=== PATIENT | female | born 1945 | race Caucasian/White ===

== ENCOUNTER 2017-10-02 00:40 | Outpatient (CLI) | payer MEDICARE, MEDICAID ==
[~2017-10-02 00:40] MED LIST: HUM10VIA SQ; LEVO25TA2 PO; LISI-604 PO
== END 2017-10-02 23:59 | disposition home or self-care (01) ==
LOC: EEVIPCON → DIABETIC 00:40
PROVIDERS: ATTEND Specialist
DX: E11.9 Type 2 diabetes mellitus without complications (principal)
CPT/HCPCS: G0108

== ENCOUNTER 2017-11-13 05:00 | Outpatient (CLI) | payer MEDICARE, MEDICAID | END 2017-11-13 23:59 | disposition home or self-care (01) | LOC: DIABETIC 05:00 | PROVIDERS: ATTEND Specialist | DX: E11.9 Type 2 diabetes mellitus without complications (principal) | CPT/HCPCS: G0108 ==

== ENCOUNTER 2022-08-19 07:19 | Emergency (ER) | payer MEDICARE, MEDICAID ==
[~2022-08-19] VITALS: Ht 162.6 cm; Wt 59.1 kg
[~2022-08-19 07:19] MED LIST changes: -LISI-604 PO; +LISI5TAB22 PO
--- NOTE | 2022-08-19 10:18 | NUR ---
Back From CT Scan.
[2022-08-19] MEDS ORDERED: TETanus/Pertussis (Acell)/Diphther VAC/PF (Tdap-Adult) 0.5ml syringe IMVAC ONE (11:40)
[2022-08-19 12:12] VITALS: BP 136/74
== END 2022-08-19 12:15 | disposition home or self-care (01) ==
LOC: ER 07:20
DX: S82.091A Other fracture of right patella, initial encounter for closed fracture (principal); I10 Essential (primary) hypertension; E11.9 Type 2 diabetes mellitus without complications; E03.9 Hypothyroidism, unspecified; F03.90 Unspecified dementia, unspecified severity, without behavioral disturbance, psychotic disturbance, mood disturbance, and anxiety; Z88.1 Allergy status to other antibiotic agents; W18.39XA Other fall on same level, initial encounter; Y93.89 Activity, other specified; Y92.89 Other specified places as the place of occurrence of the external cause; Y99.8 Other external cause status
CPT/HCPCS: 70450; 73564; 73700; 82948; 90471; 90715; 99285

== ENCOUNTER 2023-09-20 11:03 | Emergency (ER) | payer MEDICARE, MEDICAID ==
[~2023-09-20] VITALS: Ht 162.6 cm; Wt 54.5 kg
[2023-09-20 11:09] VITALS: BP 122/70; PULSE 103; TEMP 98; O2SAT 97
[2023-09-20 13:45] VITALS: RESP 16
[2023-09-20] MEDS: HYDROcodone/acetaminophen 5mg/325mg tablet PO ONE (14:30)
== END 2023-09-20 15:00 | disposition home or self-care (01) ==
LOC: ER 11:03
DX: S80.11XA Contusion of right lower leg, initial encounter (principal); I10 Essential (primary) hypertension; E11.9 Type 2 diabetes mellitus without complications; Z88.1 Allergy status to other antibiotic agents; Z79.84 Long term (current) use of oral hypoglycemic drugs; Z79.899 Other long term (current) drug therapy; W19.XXXA Unspecified fall, initial encounter; Y93.89 Activity, other specified; Y92.89 Other specified places as the place of occurrence of the external cause; Y99.8 Other external cause status
CPT/HCPCS: 70450; 73502; 73590; 82948; 99284

== ENCOUNTER 2024-02-09 14:35 | Emergency (ER) | payer MEDICARE, MEDICAID ==
[~2024-02-09] VITALS: Ht 160 cm; Wt 47.7 kg
[2024-02-09 15:25] LABS: BASOPHILS # (AUTO) 0.1 X10'3 (0-0.2); BASOPHILS % (AUTO) 0.7 % (0-1); EOSINOPHILS # (AUTO) 0.1 X10'3 (0-0.9); EOSINOPHILS % (AUTO) 1.3 % (0-6); HEMATOCRIT 33.3 % (35.0-45.0); LYMPHOCYTES # (AUTO) 1.1 X10'3 (1.1-4.8); LYMPHOCYTES % (AUTO) 14.3 % (21-51); MEAN CORPUSCULAR HEMOGLOBIN 32.3 PG (27.0-31.0); MEAN CORPUSCULAR HGB CONC 33.1 g/dL (33.0-36.5); MEAN CORPUSCULAR VOLUME 97.6 FL (78-98); MEAN PLATELET VOLUME 8.9 FL (7.4-10.4); MONOCYTES # (AUTO) 0.7 X10'3 (0-0.9); MONOCYTES % (AUTO) 8.7 % (2-12); NEUTROPHILS # (AUTO) 5.8 X10'3 (1.8-7.7); PLATELET COUNT 179 X10'3 (140-440); RED BLOOD COUNT 3.42 X10'6 (4.20-5.60); RED CELL DISTRIBUTION WIDTH 12.9 % (11.5-14.5); WHITE BLOOD COUNT 7.7 X10'3 (4.5-11.0)
[2024-02-09 15:35] LABS: ALBUMIN 3.1 G/DL (3.4-5.0); ANION GAP 9 (8-16); BLOOD UREA NITROGEN 24 MG/DL (7-18); BUN/CREATININE RATIO 23.1 (10.0-20.0); CALCIUM 8.7 MG/DL (8.5-10.1); CHLORIDE 105 MMOL/L (99-107); CREATININE 1.04 MG/DL (0.40-0.90); GLUCOSE 251 MG/DL (70-104); POTASSIUM 3.9 MMOL/L (3.5-5.1); SODIUM 140 MMOL/L (135-145); TOTAL CARBON DIOXIDE 25.9 MMOL/L (24-32); eCRCL 34 ML/MIN; eGFR 51 ML/MIN
[2024-02-09] MEDS: normal saline 1000ML IV soln IVB ONE (17:22)
[2024-02-09 18:25] VITALS: BP 124/68; PULSE 90; RESP 16; TEMP 98.3; O2SAT 93
== END 2024-02-09 18:28 | disposition home or self-care (01) ==
LOC: ER 14:36
DX: R42 Dizziness and giddiness (principal); E86.0 Dehydration; I10 Essential (primary) hypertension; E11.9 Type 2 diabetes mellitus without complications; Z88.1 Allergy status to other antibiotic agents; Z79.4 Long term (current) use of insulin; Z79.2 Long term (current) use of antibiotics
CPT/HCPCS: 36415; 80048; 85025; 93005; 99285; J7030

== ENCOUNTER 2024-11-28 23:31 | Emergency (ER) | payer MEDICARE, MEDICAID ==
[~2024-11-28] VITALS: Ht 160 cm; Wt 49.4 kg
[2024-11-29 00:26] VITALS: TEMP 97.6
[2024-11-29 01:11] LABS: BASOPHILS % (AUTO) 0.6 % (0-1); EOSINOPHILS # (AUTO) 0.2 X10'3 (0-0.9); EOSINOPHILS % (AUTO) 2.1 % (0-6); HEMOGLOBIN 11.7 g/dl (12.0-16.0); LYMPHOCYTES # (AUTO) 1.9 X10'3 (1.1-4.8); LYMPHOCYTES % (AUTO) 22.5 % (21-51); MEAN CORPUSCULAR HEMOGLOBIN 32.3 PG (27.0-31.0); MEAN CORPUSCULAR HGB CONC 34.4 g/dL (33.0-36.5); MEAN CORPUSCULAR VOLUME 93.9 FL (78-98); MEAN PLATELET VOLUME 8.3 FL (7.4-10.4); MONOCYTES # (AUTO) 0.5 X10'3 (0-0.9); MONOCYTES % (AUTO) 6.5 % (2-12); NEUTROPHILS # (AUTO) 5.6 X10'3 (1.8-7.7); NEUTROPHILS % (AUTO) 68.3 % (42-75); PLATELET COUNT 240 X10'3 (140-440); RED BLOOD COUNT 3.62 X10'6 (4.20-5.60); RED CELL DISTRIBUTION WIDTH 13.2 % (11.5-14.5); WHITE BLOOD COUNT 8.3 X10'3 (4.5-11.0)
--- NOTE | 2024-11-29 01:21 | Physician Documentation ---
History of Present Illness ~ General Chief Complaint: Multiple Medical Complaints Stated Complaint: LOW BLOOD SUGAR Time Seen by MD: 01:21 Primary Medical Doctor: [facility] Mode of Arrival: POV, Ambulatory History of Present Illness Initial Comments 79-year-old female, history of dementia, diabetes on insulin, who presents with episodes of low blood glucose. Unable to obtain any history from the patient due to her dementia. She is pleasant and smiling but does not really answer most questions. Her daughter/crop research scientist, tells me that she brought her in because she had an episode of low blood sugar where her glucose was in the 40s on her monitor. She says over the past 3 days she has had episodes similar to this. She gave her glucose and glucagon. She smelled her breath, and it smelled fruity. She called the nurse hotline, and was told that she might have DKA because of the fruity breath and so she was told to come to the emergency department. Here in the ED, the patient's blood glucose has improved. She is essentially asymptomatic. Medication Reconciliation Allergies: Coded Allergies: amoxicillin (Verified Adverse Reaction, Unknown, GI, 06/21/14) Scheduled Hum Insulin NPH/Reg Insulin Hm (Humulin 70-30 Vial), 10 UNITS SQ AC, (Reported) Lisinopril (Lisinopril), 1 TABLET PO DAILY, (Reported) levothyroxine sodium* (Synthroid*), 1 TABLET PO DAILY, (Reported) Past Medical History Past Medical History: Hypertension, Hemorrhoids, Diabetes, Thyroid (unspecified) Past Surgical History: other Other Past Surgical History: hemorrhoid surgery Alcohol Use: None Drug Use: none Review of Systems Unable to obtain complete ROS: dementia Physical Exam Physical Exam Vital Signs: Temperature: 97.6, Source: Oral, Heart Rate: 89, Respiratory Rate: 15, BP: 132/87, Pulse Oximetry: 100, Weight: 49.400 Oxygen Flow Rate: 0 Physical Exam General: This is a thin smiling elderly woman sitting quietly in bed, daughter at bedside HEENT: Atraumatic, oropharynx appears dry Heart: Regular rate and rhythm, normal-appearing peripheral perfusion Lungs: normal work of breathing, normal oxygen saturation on room air Extremities: Warm and well-perfused. Chronic appearing wound to the left posterior lower leg. Neuro: Alert, does not answer most questions. Psychiatric: Calm and smiling Progress Results/Orders Results/Orders Completed Orders - PHOEBE BRADY MD Cbc/Diff (11/28/24 23:50) CMP (11/28/24 23:50) Vital Signs 11/28/24 11/29/24 11/29/24 11/29/24 23:40 00:17 00:22 00:26 Temp 97.6 97.6 Pulse 84 89 Resp 16 16 15 B/P (MAP) 117/71 132/87 (102) Pulse Ox 96 100 O2 Flow Rate 0 0 11/29/24 02:06 Pulse 82 Resp 16 B/P (MAP) 117/71 Pulse Ox 96 Laboratory Tests Test 11/28/24 23:39 11/29/24 00:33 11/29/24 00:56 Glucometer 134 H 97 White Blood Count 8.3 Red Blood Count 3.62 L Hemoglobin 11.7 L Hematocrit 34.0 L Mean Corpuscular Volume 93.9 Mean Corpuscular Hemoglobin 32.3 H Mean Corpuscular Hemoglobin Concent 34.4 Red Cell Distribution Width 13.2 Platelet Count 240 Mean Platelet Volume 8.3 Neutrophils (%) (Auto) 68.3 Lymphocytes (%) (Auto) 22.5 Monocytes (%) (Auto) 6.5 Eosinophils (%) (Auto) 2.1 Basophils (%) (Auto) 0.6 Neutrophils # (Auto) 5.6 Lymphocytes # (Auto) 1.9 Monocytes # (Auto) 0.5 Eosinophils # (Auto) 0.2 Basophils # (Auto) 0.0 CBC Comment Sodium Level 137 Potassium Level 4.2 Chloride Level 102 Carbon Dioxide Level 27.7 Anion Gap 7 L Blood Urea Nitrogen 22 H Creatinine 0.77 Estimated GFR/1.73 m2 73 BUN/Creatinine Ratio 28.6 H Glucose Level 85 Calcium Level 8.8 Total Bilirubin 0.9 Aspartate Amino Transf (AST/SGOT) 12 Alanine Aminotransferase (ALT/SGPT) 13 Alkaline Phosphatase 138 H Total Protein 7.5 Albumin 3.7 Globulin 3.8 Albumin/Globulin Ratio 1.0 L Chemistry Comments Medical Decision Making Assessment The patient presents with episodes of hypoglycemia. Per her history and exam, I suspect that she is not eating enough to maintain her glucose levels in the setting of insulin use. She has no evidence of dangerous infection. She is not currently hypoglycemic. Her laboratory testing shows no acute abnormality including with her kidney function and electrolytes. Her daughter was reassured that she does not have DKA. At this time I feel like she is safe for discharge home. Her daughter will decrease her insulin dosing and talk to her primary doctor later today to determine ongoing diabetes management. Departure Time of Disposition: 01:49 Disposition: 01 HOME / SELF CARE / HOMELESS Impression: Primary Impression: Hypoglycemia Condition: Improved Referrals: NO PRIMARY CARE PROVIDER (PCP) Education Educated: Patient, Family Educated regarding: diagnosis, treatment Signature Scribe Signature: misa Attestation: PHOEBE Rome MD November 29, 2024 01:21
[2024-11-29 01:27] LABS: ALANINE AMINOTRANSFERASE 13 U/L (12-78); ALBUMIN 3.7 G/DL (3.4-5.0); ALKALINE PHOSPHATASE 138 IU/L (46-116); ANION GAP 7 (8-16); ASPARTATE AMINO TRANSFERASE 12 U/L (10-37); BILIRUBIN,TOTAL 0.9 MG/DL (0.1-1.0); BLOOD UREA NITROGEN 22 MG/DL (7-18); BUN/CREATININE RATIO 28.6 (10.0-20.0); CALCIUM 8.8 MG/DL (8.5-10.1); CHLORIDE 102 MMOL/L (99-107); CREATININE 0.77 MG/DL (0.40-0.90); GLUCOSE 85 MG/DL (70-104); POTASSIUM 4.2 MMOL/L (3.5-5.1); SODIUM 137 MMOL/L (135-145); TOTAL CARBON DIOXIDE 27.7 MMOL/L (24-32); TOTAL PROTEIN 7.5 G/DL (6.4-8.2); eCRCL 48 ML/MIN; eGFR 73 ML/MIN
[2024-11-29 02:06] VITALS: BP 117/71; PULSE 82; RESP 16; O2SAT 96
== END 2024-11-29 02:12 | disposition home or self-care (01) ==
LOC: ER 23:31
DX: E11.649 Type 2 diabetes mellitus with hypoglycemia without coma (principal); F03.90 Unspecified dementia, unspecified severity, without behavioral disturbance, psychotic disturbance, mood disturbance, and anxiety; I10 Essential (primary) hypertension; Z88.0 Allergy status to penicillin
CPT/HCPCS: 36415; 80053; 82948; 85025; 99284

== ENCOUNTER 2025-06-15 22:47 | Emergency (ER) | payer MEDICARE, MEDICAID ==
[~2025-06-15] VITALS: Ht 160 cm; Wt 47.0 kg
[2025-06-15 23:00] VITALS: TEMP 97.7
--- NOTE | 2025-06-15 23:06 | Physician Documentation ---
History of Present Illness ~ Chief Complaint: Syncope Stated Complaint: STEMI Time Seen by MD: 22:59 Primary Medical Doctor: [facility] HPI 80-year-old female, presenting with a head injury Per EMS, the patient had a syncopal episode at home, hit the back of her head. Her daughter found her on the ground. EKG was concerning for possible STEMI. No medications given because of the patient's dementia and challenging behavioral issues Here in the ED, the patient does not cooperate or answer questions. The patient's daughter arrives. She states that the patient did have a fall at home. When she found her on the ground, she was pale and sweaty. She states that the patient has had orthostatic hypotension. She complains of dizziness frequently. She has not complained of any chest pain. Medication Reconciliation Allergies: Coded Allergies: amoxicillin (Verified Adverse Reaction, Unknown, GI, 06/21/14) Scheduled Hum Insulin NPH/Reg Insulin Hm (Humulin 70-30 Vial), 10 UNITS SQ AC, (Reported) Lisinopril (Lisinopril), 1 TABLET PO DAILY, (Reported) levothyroxine sodium* (Synthroid*), 1 TABLET PO DAILY, (Reported) Past Medical History Past Medical History: Hypertension, Hemorrhoids, Diabetes, Thyroid (unspecified) Past Surgical History: other Other Past Surgical History: hemorrhoid surgery Alcohol Use: None Drug Use: none Review of Systems Unable to obtain complete ROS: dementia Physical Exam Vital Signs: Temperature: 97.7, Source: Oral, Heart Rate: 96, Respiratory Rate: 15, BP: 169/89, Pulse Oximetry: 99, Weight: 47.000 Oxygen Flow Rate: 0 Physical Exam General: This is a thin elderly woman, arrives by EMS HEENT: Hematoma to the right posterior scalp, no bleeding or laceration, oropharynx is dry Neck: No reaction to palpation of the midline C-spine Heart: Regular rate and rhythm, normal-appearing peripheral perfusion Lungs: Clear breath sounds bilateral, normal work of breathing, normal oxygen saturation on room air Abdomen: Soft, nondistended, no reaction to palpation of the abdomen Extremities: Warm and well-perfused, no obvious traumatic findings Neuro: Alert, the patient does not answer orientation questions, appears i ntermittently agitated Progress Results/Orders Results/Orders Orders - PHOEBE BRADY MD Ct Head (06/15/25 23:10) Chest,Single View (06/15/25 23:00) Urinalysis, Cult If Indicated (06/15/25 23:01) Straight Cath For Urine Sample (06/15/25 23:01) Ct Cervical Spine (06/15/25 23:10) Completed Orders - PHOEBE BRADY MD Ct Head (06/15/25 23:10) Hs Troponin I W Calculations (06/15/25 23:00) Cbc/Diff (06/15/25 23:00) CMP (06/15/25 23:00) PBNP (06/15/25 23:00) Chest,Single View (06/15/25 23:00) Ct Cervical Spine (06/15/25 23:10) Ondansetron Inj. (Zofran 4mg/2ml Vial) (06/15/25 23:35) Dextrose 50%-Water (Dextrose 50%-Water S (06/15/25 23:45) Medications Received in ER Medications (Trade) Dose Ordered Sig/Marito Route PRN Reason Start Time Stop Time Status Last Admin Dose Admin (Zofran 4mg/2ml vial) 4 mg ONCE ONCE IV 06/15/25 23:35 06/15/25 23:36 DC 06/15/25 23:36 4 MG (dextrose 50%-water syringe) 25 ml ONCE ONCE IV 06/15/25 23:45 06/15/25 23:46 DC 06/15/25 23:46 25 ML Vital Signs 06/15/25 06/15/25 06/15/25 06/16/25 22:53 23:00 23:45 00:00 Temp 97.7 97.7 Pulse 97 96 104 109 Resp 16 15 17 17 B/P (MAP) 159/94 169/89 (115) 166/84 (111) 154/81 (105) Pulse Ox 98 99 99 96 O2 Flow Rate 0 0 0 0 06/16/25 06/16/25 06/16/25 00:15 00:30 00:45 Pulse 109 111 110 Resp 17 18 18 B/P (MAP) 149/82 (104) 150/88 (108) 156/92 (113) Pulse Ox 97 99 97 O2 Flow Rate 0 0 0 Laboratory Tests Test 06/15/25 23:00 White Blood Count 8.3 Red Blood Count 3.59 L Hemoglobin 11.5 L Hematocrit 34.4 L Mean Corpuscular Volume 96.0 Mean Corpuscular Hemoglobin 32.1 H Mean Corpuscular Hemoglobin Concent 33.5 Red Cell Distribution Width 13.3 Platelet Count 227 Mean Platelet Volume 8.3 Neutrophils (%) (Auto) 48.3 Lymphocytes (%) (Auto) 42.8 Monocytes (%) (Auto) 6.5 Eosinophils (%) (Auto) 1.8 Basophils (%) (Auto) 0.6 Neutrophils # (Auto) 4.0 Lymphocytes # (Auto) 3.6 Monocytes # (Auto) 0.5 Eosinophils # (Auto) 0.2 Basophils # (Auto) 0.0 CBC Comment Sodium Level 144 Potassium Level 3.6 Chloride Level 110 H Carbon Dioxide Level 27.5 Anion Gap 7 L Blood Urea Nitrogen 21 H Creatinine 0.70 Estimated GFR/1.73 m2 81 BUN/Creatinine Ratio 30.0 H Glucose Level 72 Calcium Level 9.0 Total Bilirubin 0.5 Aspartate Amino Transf (AST/SGOT) 30 Alanine Aminotransferase (ALT/SGPT) 21 Alkaline Phosphatase 63 Troponin I High Sensitivity 315 *H Pro-B-Type Natriuretic Peptide 449 Total Protein 7.0 Albumin 3.6 Globulin 3.4 Albumin/Globulin Ratio 1.1 Chemistry Comments EKG/XRAY/CT/US/VASC/MRI EKG : Additional Comment I personally interpreted the EKG and this shows: Sinus rhythm, left bundle branch block, rate 97, QTC 447, does not appear consistent with a STEMI CT : Impression I personally interpreted the CT scan, and this shows a subdural hematoma and subarachnoid hemorrhage Consults/PCP Consults/PCP : Additional Comment CONSULT: Spoke to Dr. Arboleda, ER physician at [facility], accepts for transfer Medical Decision Making Additional information obtaine: family Findings Most history obtained from the daughter Differential Dx:Considerations: Include: CVA, dehydration, dysrhythmia, electrolyte disorder, myocardial infarction, pulmonary embolus, vasovagal Additional Information The patient presents with a fall and head injury. EMS was concerned for possi ble STEMI. Her EKG here does not appear to meet STEMI criteria. She does have evidence of a head injury. She was taken for emergent brain imaging, which does show an intracranial hemorrhage. I had a discussion with her family, who initially was hesitant about transfer for admission at [facility]. After they had a family discussion, they did decide to proceed with transfer to [facility] for further treatment and care. Departure Impression: Primary Impression: Subdural hematoma Additional Impression: Syncope Referrals: NO PRIMARY CARE PROVIDER (PCP) Critical Care Note Critical Care Note Critical Care Note The very real possibility of a deterioration of this patient's condition required the highest level of my preparedness for sudden, emergent intervention. I provided critical care services, which included medication orders, frequent reevaluations of the patient's condition and response to treatment, ordering and reviewing test results, and discussing the case with various consultants. Excludes time spent performing separately billable procedures. The critical care time associated with the care of the patient was 35 minutes in the management of acute head trauma with intracranial hemorrhage with high risk for decompensation Signature Scribe Signature: misa Attestation: PHOEBE Rome MD Jun 15, 2025 23:06
[2025-06-15 23:32] LABS: MEAN PLATELET VOLUME 8.3 FL (7.4-10.4); RED CELL DISTRIBUTION WIDTH 13.3 % (11.5-14.5)
--- NOTE | 2025-06-15 23:33 | RADIOLOGY REPORT ---
EXAM: CT CT HEAD INDICATION: Syncope, fall, head injury TECHNIQUE: CT of the head without intravenous contrast. Radiation Dose : 1. Head: CT Dose: CTDI volume is 50 mGy. Dose-length product is 868 mGy*cm The dose indicators for CT are the volume Computed Tomography (CT) Dose Index (CTDIvol) and the Dose Length Product (DLP), and are measured in units of mGy and mGy-cm, respectively. These indicators are not patient dose, but values generated from the CT scanner acquisition factors. The report includes radiation exposure data for exposures received during this examination. COMPARISON: CT CT HEAD on DOS: 09/20/23, CT HEAD on DOS: 08/19/22 FINDINGS: Brain: Heterogeneously hyperdense left convexity subdural hemorrhage along the parietal and frontal lobes measuring up to 1 cm in thickness, with more lobular appearance along the inferior frontal gyrus. No midline shift. Small amount of hemorrhage along right cerebellar sulci. Periventricular white matter hypodensity and global parenchymal volume loss. Senescent basal ganglia calcifications. CSF Spaces: Moderate symmetric enlargement. Borderline acute callosal angle. Bones/Soft Tissues: No acute fracture. Right posterior parietal scalp hematoma. Orbits/Sinuses/Mastoids: Unremarkable as visualized. IMPRESSION: 1. Left convexity subdural hemorrhage measuring up to 1 cm in thickness. No associated midline shift. 2. Small extra-axial hemorrhage in the right posterior cranial fossa. 3. Right posterior scalp hematoma. I communicated the above findings with RN Ryanne Bee at 11:29 p.m. [facility] on 06/15/2025, who demonstrated understanding with positive read back. Radiation optimization: All CT scans at this facility use at least one of these dose optimization techniques: automated exposure control mA and/or kV adjustment per patient size (includes targeted exams where dose is matched to clinical indication) or iterative reconstruction.
[2025-06-15] MEDS: ondansetron/PF 4mg/2ml inj IV ONE (23:36)
[2025-06-15 23:38] LABS: CREATININE 0.70 MG/DL (0.40-0.90); PRO BRAIN NATRIURETIC PEPTIDE 449 PG/ML (0-450); TOTAL CARBON DIOXIDE 27.5 MMOL/L (24-32); eCRCL 49 ML/MIN; eGFR 81 ML/MIN
--- NOTE | 2025-06-15 23:39 | RADIOLOGY REPORT ---
CHEST RADIOGRAPH INDICATION: Syncope TECHNIQUE: Single frontal view of the chest was obtained COMPARISON: None FINDINGS: Lines and Tubes: None Lungs: Clear Pleura: No effusion. No pneumothorax. Cardiomediastinal contours: Unremarkable Bones: Unremarkable IMPRESSION: 1. No acute disease.
--- NOTE | 2025-06-15 23:41 | RADIOLOGY REPORT ---
EXAM: CT CT CERVICAL SPINE INDICATION: Fall, head injury EXAM DATE: 06/15/2025 11:05 PM COMPARISON: None TECHNIQUE: Multiple axial CT images of the cervical spine were obtained using bone algorithm. Axial and coronal reformatting was done. Bone and soft tissue windows were reviewed. Radiation Dose Information: CT Dose: CTDI volume is 12.7 mGy. Dose-length product is 260 mGy*cm FINDINGS: There is age-indeterminate mild compression of the superior endplate of T2 without retropulsion. There are degenerative changes of the cervical spine characterized by endplate osteophytosis and intervertebral disc space narrowing. There is grade 1 anterolisthesis of C3 on C4 and C4 on C5. There is mild uncovertebral and facet hypertrophy without significant neural foraminal narrowing. The paraspinal soft tissues are unremarkable. IMPRESSION: 1. Age-indeterminate mild compression of the superior endplate of T2 without retropulsion. 2. Degenerative changes of the cervical spine as detailed. All CT scans at this medical facility are performed using dose modulation techniques as appropriate to a performed exam including the following: Automated exposure control was utilized; adjustment of the MA and/or KV according to patient size; and use of iterative reconstruction technique.
[2025-06-15] MEDS: dextrose 50%-water 50ml dispensing syringe IV ONE (23:46)
[2025-06-16 00:45] VITALS: BP 156/92; PULSE 110; RESP 18; O2SAT 97
--- NOTE | 2025-06-16 12:09 | ELECTROCARDIOGRAPH REPORT ---
[facility] Test Date: 2025-06-15 Test Time: 22:49:20 Pat Name: MAR CHAIDEZ Department: EMERGENCY ROOM Room: Gender: F Retail Service Specialist: ALEXEI : 1945 Requested By: DEPARTMENT EMERGENCY Order Number: [id number] Reading MD: Dr. LAZARO Sanders Measurements Intervals [place] Rate: 97 P: 91 CA: 174 QRS: 38 QRSD: 109 T: 144 QT: 352 QTc: 447 Interpretive Statements Sinus rhythm Probable left atrial enlargement Incomplete left bundle branch block LVH with secondary repolarization abnormality Anterior Q waves, possibly due to LVH Electronically Signed On 06-17-2025 19:39:[address] LAZARO Sanders Please click the below link to view image of tracing.
== END 2025-06-16 01:20 | disposition hospice, inpatient (51) ==
LOC: ER 22:47
DX: S06.5X9A Traumatic subdural hemorrhage with loss of consciousness of unspecified duration, initial encounter (principal); E11.9 Type 2 diabetes mellitus without complications; I10 Essential (primary) hypertension; Z87.19 Personal history of other diseases of the digestive system; Z88.1 Allergy status to other antibiotic agents; Z79.4 Long term (current) use of insulin; Z79.899 Other long term (current) drug therapy; W18.39XA Other fall on same level, initial encounter; Y93.89 Activity, other specified; Y92.009 Unspecified place in unspecified non-institutional (private) residence as the place of occurrence of the external cause; Y99.8 Other external cause status
CPT/HCPCS: 36415; 70450; 71045; 72125; 80053; 83880; 84484; 85025; 93005; 96374; 96375; 99291; J2405; J3490